=== PATIENT | female | born 1995 | race Caucasian/White ===

== ENCOUNTER 2019-12-29 15:41 | Emergency (ER) | payer OTHER, SELFPAY ==
[2019-12-29 16:00] VITALS: BP 133/61; PULSE 80; RESP 16; TEMP 36.9; O2SAT 100
--- NOTE | 2019-12-29 16:20 | ED.FEMALEGU ---
HPI - Female Genitourinary General Chief complaint: Urogenital-Female Stated complaint: uti/back pain Time Seen by Provider: 12/29/19 16:13 Source: patient and RN notes reviewed Mode of arrival: ambulatory Limitations: no limitations History of Present Illness HPI Narrative: Patient presents today complaining of left low back pain that started 1 week ago. On 12/22/2019, she was placed on a course of Macrobid for UTI by her PCP. She finished this medication 3 days ago and states her urinary symptoms improved, but the low back pain persists. Pain increases when she moves or goes from a sitting to standing position. She currently rates her pain 3/10. Denies radiation of the pain. Denies any loss of bowel or bladder control. Denies any numbness or tingling in the extremities. 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 Denies any known injury. MD elicited complaint: other (Back pain) Related Data Allergies Allergy/AdvReac Type Severity Reaction Status Date / Time No Known Allergies Allergy Verified 12/29/19 15:44 Review of Systems Review of Systems: Narrative: CONSTITUTIONAL: Denies body aches, fever, chills, or sweats. EYES: Denies visual changes, redness, or discharge. ENT: Denies rhinorrhea, congestion, sore throat, or otalgia. CARDIOVASCULAR: Denies chest pain, palpitations, or edema. RESPIRATORY: Denies cough or dyspnea. GASTROINTESTINAL: Denies abdominal pain, nausea, vomiting, or diarrhea. GENITOURINARY: Denies dysuria or hematuria. SKIN: Denies rash, itching, or wounds. MUSCULOSKELETAL: Denies joint pain, or myalgia. + Left low back pain NEUROLOGIC: Denies headache, numbness, tingling, or weakness. PSYCH: Denies depression or anxiety. PMFSH Social History Social History Gender identity (if verbalized by the patient): Female Comments At time of signature, I have reviewed and agree with nursing past medical, surgical, social and family history unless otherwise noted. Please see nursing chart for further information. There is no relevant family history pertinent to the presenting complaint Exam Narrative: Exam Narrative: GENERAL: Well-appearing, well-nourished, and in no acute distress. HEAD: Normocephalic, atraumatic. EYES: EOMI. No redness or drainage. Conjunctivae normal. ENT: Mucous membranes pink and moist. NECK: Normal AROM. CHEST: No respiratory distress. MUSCULOSKELETAL: -CVAT. No bony tenderness of the spine. Left lower lumbar paraspinal muscle tenderness. No tenderness of the SI joint. No right-sided tenderness. Distal sensation intact. Capillary refill normal. Pedal pulses normal. EXTREMITIES: Normal range of motion. No edema. SKIN: Warm, dry, no rash. Capillary refill normal. Normal skin turgor. NEURO: No focal deficits. Alert and oriented x3. Gait steady. PSYCH: Normal affect. No signs of depression or anxiety. Course Vital Signs Vital signs: Vital Signs Temperature 98.4 F 12/29/19 16:00 Pulse Rate 80 12/29/19 16:00 Respiratory Rate 16 12/29/19 16:00 Blood Pressure 133/61 12/29/19 16:00 Pulse Oximetry 100 12/29/19 16:00 Temperature 98.4 F 12/29/19 16:00 Pulse Rate 80 12/29/19 16:00 Respiratory Rate 16 12/29/19 16:00 Blood Pressure 133/61 12/29/19 16:00 Pulse Oximetry 100 12/29/19 16:00 Reviewed. Pt has been instructed to follow up with her PCP regarding her elevated blood pressure today. MDM - Female Genitourinary Differential Diagnosis Differential diagnosis: Likely urinary tract infection and other (Kidney stone, pyelonephritis, muscle strain) Lab Data Labs: Urine Glucose Negative Reference Range: Negative Urine Bilirubin Negative Reference Range: Negative Urine Ketone Negative Reference Range: Negative Urine Specific [place] 1.025 Reference Range:1.001-1.035
== END 2019-12-29 16:30 | disposition home or self-care (01) ==
PROVIDERS: Emergency Provider Nurse Practitioner; PCP Nurse Practitioner Family
DX: S39.012A Strain of muscle, fascia and tendon of lower back, initial encounter (principal); X58.XXXA Exposure to other specified factors, initial encounter
CPT/HCPCS: 81003; 99213; G0463

== ENCOUNTER 2020-04-04 12:09 | Emergency (ER) | payer OTHER, SELFPAY ==
--- NOTE | ~2020-04-04 | XR_ITS ---
EXAMINATION: XR chest 2V DATE: 04/04/2020 13:02 INDICATION: Wheezing. TECHNIQUE: Frontal and lateral views of the chest were obtained. COMPARISON: None. FINDINGS: The chest demonstrates clear lungs without pneumonia, pleural effusion, or pneumothorax. Th e heart size is normal. IMPRESSION: 1. No acute cardiopulmonary disease. Reviewed, dictated and finalized at location A.
[2020-04-04 12:13] VITALS: PULSE 111; RESP 18; TEMP 37; O2SAT 99
--- NOTE | 2020-04-04 12:36 | ED.GENADULT ---
HPI - General Adult General Chief complaint: Upper Respiratory Infection Stated complaint: Wheezing Time Seen by Provider: 04/04/20 12:36 Source: patient Mode of arrival: ambulatory Limitations: no limitations History of Present Illness HPI narrative: 24-year-old female patient presents to the [facility] with complaints of shortness of breath and wheezing that started yesterday. Patient states she is currently 17 weeks . Patient states she has had this before earlier in the year and was diagnosed with bronchitis and was given some steroids. Patient states she was a former smoker but since she has been she has quit smoking. Patient states she has had a productive cough with some green sputum. Denies any fevers, body aches or chills. Denies any ear pain, sore throat or runny nose. Patient states she did have a head cold about 2 weeks ago. 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 Denies getting her flu shot yet this year. Related Data Home Medications Medication Instructions Recorded Confirmed 04/04/20 Allergies Allergy/AdvReac Type Severity Reaction Status Date / Time No Known Allergies Allergy Verified 12/29/19 15:44 Review of Systems Review of Systems: Narrative: CONSTITUTIONAL: Denies fever, chills, or sweats. EYES: Denies visual changes, redness, or discharge. ENT: Denies rhinorrhea, congestion, sore throat, or otalgia. CARDIOVASCULAR: Denies chest pain, palpitations, or edema. RESPIRATORY: Positive productive cough with dyspnea. GASTROINTESTINAL: Denies abdominal pain, nausea, vomiting, or diarrhea. GENITOURINARY: Denies dysuria or hematuria. SKIN: Denies rash or itching. MUSCULOSKELETAL: Denies back pain, joint pain, or myalgia. NEUROLOGIC: Denies headache, numbness, or weakness. PSYCHIATRIC: Denies anxiety or depression. PMFSH Social History Social History Gender identity (if verbalized by the patient): Female Comments At the time of my signature I agree with nursing past medical history, surgical, social, and family history. There is no relevant family history pertinent to the presenting complaint. Exam Narrative: Exam Narrative: GENERAL: Well-appearing, well-nourished, and in no acute distress. HEAD: Normocephalic, atraumatic. EYES: PERRLA and EOMI. ENT: Nares clear, no rhinorrhea or epistaxis. Mucous membranes moist. Posterior pharynx with no erythema, tonsil enlargement, exudates or lesions present. Bilateral TMs are clear with no erythema or foreign bodies to the canal. NECK: Supple. No lymphadenopathy CHEST: Patient has wheezing noted on inspiration and expiration and bilateral upper and lower lobes. Patient is talking in full complete sentences with no tripoding noted. HEART: Regular rate and rhythm. No murmur heard. Normal peripheral pulses. ABDOMEN: Soft, nontender, nondistended, normal active bowel sounds. EXTREMITIES: Normal range of motion. No edema. SKIN: Warm, dry, no rash. NEURO: No focal deficits. Alert and oriented x3. Course Reevaluation(s) Reevaluation #1: Reevaluated patient after her breathing treatment had concluded. Discussed with her that she is feeling a little bit better and feels like she can take a bigger deeper breath. Patient continues to have some wheezing to bilateral upper lobes but does have some improvement to the wheezing since the breathing treatment. Discussed with patient we will discharge her home with an albuterol inhaler along with azithromycin antibiotic. Discussed with her that because she is I am not going to prescribe any steroids at this time. Discussed with her that she can follow-up with her OB. We will go ahead and send patient for Covid test seen and discussed with her that the order will be faxed over to [facility] and they will call her most likely sometime tomorrow to schedule the testing. Discussed with patient that regardless of her test result
[2020-04-04] MEDS: ALBUTEROL SULFATE NEB 2.5 MG/3 ML INH INHALATION (13:18)
[2020-04-04 13:54] VITALS: PULSE 111; RESP 18; O2SAT 100; O2SAT 99
== END 2020-04-04 13:54 | disposition home or self-care (01) ==
PROVIDERS: Emergency Provider Nurse Practitioner Family; PCP Nurse Practitioner Family
DX: O99.512 Diseases of the respiratory system complicating pregnancy, second trimester (principal); Z3A.17 17 weeks gestation of pregnancy; J20.8 Acute bronchitis due to other specified organisms; Z20.828 Contact with and (suspected) exposure to other viral communicable diseases
CPT/HCPCS: 71046; 87081; 87804; 87880; 94640; 99213; G0463

== ENCOUNTER 2020-04-05 11:13 | Outpatient (NON) | payer OTHER, SELFPAY ==
[2020-04-05 22:56] LABS: SARS-CoV-2 RNA PCR Negative
== END 2020-04-05 11:14 ==
PROVIDERS: PCP Nurse Practitioner Family; Visit Provider Nurse Practitioner Family
DX: Z20.828 Contact with and (suspected) exposure to other viral communicable diseases (principal); J20.8 Acute bronchitis due to other specified organisms
CPT/HCPCS: 87635; C9803; U0003

== ENCOUNTER 2020-09-04 05:02 | Inpatient (IN) | payer OTHER, SELFPAY ==
[2020-09-04] VITALS (110 sets, daily range): BP systolic 94–164; BP diastolic 41–142; PULSE 32–150; RESP 18; TEMP 36.3–37; O2SAT 81–100; BMI 24.5
--- NOTE | 2020-09-04 05:02 | LDADM ---
This patient, Ada Marino, was admitted to Labor/Delivery/Recovery 103 on 09/04/20 at 05:02. Plans for labor, pain management and were discussed with patient. Patient/family oriented to hospital policies and general routines including ID bracelet, bed and alarms, visiting hours, pain management, procedures, bathroom and other care routines, personal items, smoking policy, room service/diet and guest tray routines, infant security routines, and visiting hours. Patient/Family are encouraged to report perceived risks to care and to ask questions if they do not understand what they are told or what they should do. See OBIX for further documentation.
[2020-09-04 05:30] LABS: Basophils Absolute Auto 0.1 K/mm3 (0.0-0.1); Basophils Percent Auto 0.3 % (0.2-1.2); Eosinophils Absolute Auto 0.3 K/mm3 (0-0.3); Eosinophils Percent Auto 2.2 % (0-4.4); Hematocrit 34.5 % (37.0-47.0); Hemoglobin 11.7 g/dL (12.0-15.0); Immature Granulocyte Percent A 1.3 % (0-0.5); Lymphocytes Absolute Auto 3.28 K/mm3 (0.9-3.2); Lymphocytes Percent Auto 21.9 % (18.3-44.2); Mean Corpuscular HGB Conc 33.9 g/dl (32-36); Mean Corpuscular Hemoglobin 27.3 pg (26-34); Mean Corpuscular Volume 80.6 fl (80-100); Mean Platelet Volume 12.2 fl (7.4-10.4); Monocytes Absolute Auto 1.6 K/mm3 (0.1-0.6); Monocytes Percent Auto 10.7 % (2.6-8.5); Neutrophils Absolute Auto 9.5 K/mm3 (1.3-6.7); Neutrophils Percent Auto 63.6 % (45.5-73.1); Platelet Count Result 254 k/mm3 (150-375); Red Blood Count 4.28 M/mm3 (4.2-5.4); Red Cell Distribution Width 14.6 % (11.5-14.5)
[2020-09-04] MEDS: LACTATED RINGERS 1,000 ML 125 ML IV CONT ×3 (05:42→12:34)
[2020-09-04] MEDS: OXYTOCIN 30 UNITS/NS 500 ML 30 UNITS/500 ML BAG 6 UNITS IV CONT ×2 (05:42→13:51)
--- NOTE | 2020-09-04 08:08 | WPDANESEPP ---
Anes - Eval Pre Procedure Procedure: labor epidural Date/Time: 09/04/20 08:08 Preop Diagnosis: pain during labor Pre Op Diagnosis: Induction of Labor Patient Data Age: 24 Gender: F Height: 5 ft 8 in Weight: 73 kg Last Vital Signs Temp 36.7 C 09/04/20 05:40 Pulse 93 09/04/20 08:00 BP 129/74 09/04/20 08:00 Allergies Allergy/AdvReac Type Severity Reaction Status Date / Time No Known Allergies Allergy Verified 08/17/20 12:15 Home Medications Medication Instructions Recorded Confirmed Type albuterol sulfate [Ventolin HFA] 2 puff INHALATION .Q4 hours PRN 04/04/20 09/04/20 Rx #18 gm prenat.vits,moises,[id number] 1 tablet PO DAILY 08/13/20 08/13/20 History [ #2] Laboratory Tests 09/04/20 09/04/20 09/04/20 05:20 05:20 05:20 WBC 15.0 K/mm3 H K/mm3 (4.5-10.0) RBC 4.28 M/mm3 M/mm3 (4.2-5.4) Hgb 11.7 g/dL L g/dL (12.0-15.0) Hct 34.5 % L % (37.0-47.0) MCV 80.6 fl fl (80-100) MCH 27.3 pg pg (26-34) MCHC 33.9 g/dl g/dl (32-36) RDW 14.6 % H % (11.5-14.5) Plt Count 254 k/mm3 k/mm3 (150-375) MPV 12.2 fl H fl (7.4-10.4) Immature Gran % (Auto) 1.3 % H % (0-0.5) Neut % (Auto) 63.6 % % (45.5-73.1) Lymph % (Auto) 21.9 % % (18.3-44.2) [place] % (Auto) 10.7 % H % (2.6-8.5) Eos % (Auto) 2.2 % % (0-4.4) Baso % (Auto) 0.3 % % (0.2-1.2) Lymph # (Auto) 3.28 K/mm3 H K/mm3 (0.9-3.2) [place] # (Auto) 1.6 K/mm3 H K/mm3 (0.1-0.6) Eos # (Auto) 0.3 K/mm3 K/mm3 (0-0.3) Baso # (Auto) 0.1 K/mm3 K/mm3 (0.0-0.1) Abs Immat Gran (auto) 0.20 K/mm3 H K/mm3 (0.00-0.031) Absolute Neuts (auto) 9.5 K/mm3 H K/mm3 (1.3-6.7) Absolute Nucleated RBC 0.0 K/mm3 K/mm3 (0.0-0.012) Nucleated RBC % 0.0 % % (0.0-0.2) RPR Pending Blood Type B Positive Antibody Screen Negative Patient hx anesthesia problems: none Family hx anesthesia problems: none PMFSH Family History Family History Grandparent Diabetes mellitus Sibling Kidney failure Asthma Borderline diabetes Mother Asthma Social History Social History Smoking status: Never smoker Gender identity (if verbalized by the patient): Female Exam Day of Procedure 09/04/20 08:08 Patient weight: normal Heart: regular rate and rhythm Neurological: alert and oriented
--- NOTE | 2020-09-04 09:02 | WPDOBADMIT ---
Obstetrics - Admit Note Admission Note: record reviewed. No pertinent additions to the history and/or any subsequent changes in the physical findings that are not consistent with the expected course of the were found.EIL, SVE 3-4/-1, Arom moderate amount of clear odorless fluid Additions to the history and/or subsequent changes in the physical findings follow. None.
--- NOTE | 2020-09-04 13:29 | PM.OBPRVD ---
OB - Delivery Note Procedure Delivery date: 09/04/20 Procedure: vaginal delivery Intrapartal events: None Induction method: AROM and per pitocin protocol Delivery monitor: external FHT and external uterine Route of delivery: Episiotomy description: None Laceration Description: None Specimen: No Quantitative Blood Loss (ml): 52 Anesthesia type: Epidural Disposition: other () [place] Baby Date of : 09/04/20 Time of : 13:18 Weeks of gestation at delivery: 39 Infant gender: Male Weight (pounds): 8 Weight (ounces): 7 presentation: vertex position: Right Occiput Anterior Placenta delivery description: Spontaneous cord vessel description: 3 Vessels, Clamped/Cut and Delayed Cord Clamping score one minute: 9 score five minutes: 9 Narrative: Mom and baby skin to skin and in stable condition.
--- NOTE | 2020-09-04 16:18 | OBPPTRN ---
Patient transferred to post room #288 via wheelchair. Support person present. Oriented to unit, room, information board, rooming in, admission packet and security measures. Patient verbalizes understanding.
[2020-09-04] MEDS: IBUPROFEN 600 MG TABLET PO (22:44)
[2020-09-05 03:00] VITALS: BP 111/67; PULSE 89; RESP 16; TEMP 36.1
[2020-09-05 05:33] LABS: Hematocrit 32.9 % (37.0-47.0); Hemoglobin 10.7 g/dL (12.0-15.0)
[2020-09-05 08:00] VITALS: BP 134/60; PULSE 95; RESP 18; TEMP 36.8
--- NOTE | 2020-09-05 09:52 | WPDANLDPN2 ---
Anes-Prog Note L&D Date/Time: 09/05/20 09:52 Comfortable throughout: labor and delivery Neuraxial method: epidural Epidural/Spinal procedure site: clean & non-tender Neuro status: Neuro function grossly intact. Cardiovascular status: normal Respiratory status: normal Airway patency: baseline Mental status: baseline Post-Op hydration status: normal Vital Signs: Last Vital Signs Temp 36.1 C L 09/05/20 03:00 Pulse 89 09/05/20 03:00 Resp 16 09/05/20 03:00 BP 111/67 09/05/20 03:00 Pulse Ox 99 09/04/20 13:02 Pain score (VAS): 0 Post-procedural complaints: none Patient feedback: Patient satisfied with anesthetic care.
[2020-09-05] MEDS: IBUPROFEN 600 MG TABLET PO (10:00)
[2020-09-05] MEDS: DOCUSATE SODIUM 100 MG CAPSULE PO (10:00)
[2020-09-05] MEDS: MULTIVIT/MIN/PREN/FOL AC/IRON TABLET 1 TAB PO (10:00)
--- NOTE | 2020-09-05 12:12 | PM.OBPNVD ---
OB - PN: Subj Subjective Date/time seen: 09/05/20 12:12 Patient comments: no complaints baby status: doing well [place] feeding status: breast and bottle feeding OB - PN: Obj Data Labs CBC & Chem 7: 09/05/20 05:25 Labs: Laboratory Results - last 24 hr 09/05/20 05:25 Hgb 10.7 L Hct 32.9 L OB - PN A/P Plan day: 1 Plan: routine care and discharge home Time Spent With Patient Time: Total time spent is greater than 50% in coordination of care (as documented) at patient's floor/unit and/or counseling patient: Review of Systems Review of Systems: All systems reviewed & are unremarkable except as noted in HPI and below Exam Const: General: cooperative and healthy appearing Psych: Affect: normal affect Attitude: cooperative Thought process: Normal thought process present Thought content: Yes Normal thought content present Insight: Good insight present (Psych) Judgement: Good judgement present (Psych)
--- NOTE | 2020-09-05 12:13 | P.DS_ITS ---
DS: Admitting Diagnosis Admitting Diagnosis Admitting Diagnosis: EIL OB - DS: Summary OB Procedures : None OB Procedures Intrapartum: Spontaneous Vag Delivery OB Procedures: : None Time Spent with Patient Time attestation: Total time spent providing and/or coordinating discharge services: DS: Data Data Completed and Pending Labs on day of discharge: Labs from last 24 hours 09/05/20 05:25 Hgb 10.7 L Hct 32.9 L Discharge Plan Discharge Attending physician on discharge: Chris White Discharging Clinician: Becki Sahu Patient Disposition: Home, Self-Care Activity: pelvic rest Diet: regular Patient Instructions: Antibiotic Form Stand Alone Forms: General Discharge Information Follow-up/Referrals: Becki Sahu, CNM [Certified Nurse [employer] Social Worker] - 4 Weeks Discharge Medications: Continued albuterol sulfate [Ventolin HFA] 90 mcg/actuation HFA aerosol inhaler 2 puff INHALATION .Q4 hours PRN (Reason: cough) Qty: 18 RF: 0 #2 Tablet 1 tablet PO DAILY RF: 0 Date of admission: 09/04/20 05:02 Primary Care Provider: Dante,Char Admitting Provider: Chris White Attending physician on admission: Chris White Condition: Stable
[2020-09-05 12:17] VITALS: BP 121/80; PULSE 92; RESP 18; TEMP 36.7
--- NOTE | 2020-09-05 14:25 | PC.NURSE ---
Mother states she would like to go home today. She has lots of help at home and feel comfortable with the feeding plan of , pumping and supplementing with formula every three hours.
--- NOTE | 2020-09-05 14:51 | PC.NURSE ---
Patient viewed the discharge video Mother & Baby Care, The First Two Weeks . Patient was given the opportunity and encouraged to ask questions. Patient verbalized understanding of information shared and has been given the mother/baby guide for home reference.
[2020-09-06 07:02] LABS: Rapid Plasma Reagin Non-Reactive (NonReactive)
[2020-09-07 11:06] VITALS: BP 104/72; PULSE 81; RESP 20; TEMP 36.9; O2SAT 98
== END 2020-09-05 15:50 | disposition home or self-care (01) | DRG 807 ==
LOC: ANHLDR 05:09 → ANHOB2 16:22
PROVIDERS: Advanced Practice Midwife; Admitting Provider Obstetrics & Gynecology; PCP Nurse Practitioner Family; Visit Provider Obstetrics & Gynecology
DX: O76 Abnormality in fetal heart rate and rhythm complicating labor and delivery (principal); Z37.0 Single live birth; Z3A.39 39 weeks gestation of pregnancy
CPT/HCPCS: 36415; 85014; 85018; 85025; 86592; 86850; 86900; 86901; A9270; J2590; J2795; J7120

== ENCOUNTER 2022-11-20 05:06 | Inpatient (IN) | payer OTHER, SELFPAY ==
[2022-11-20] VITALS (25 sets, daily range): BP systolic 71–145; BP diastolic 36–129; PULSE 66–131; RESP 16; TEMP 36.5–36.9; O2SAT 99–100; BMI 32.8
--- NOTE | 2022-11-20 05:29 | LDADM ---
This patient, Ada Marino, was admitted to Labor/Delivery/Recovery 108 on 11/20/22 at 05:06. Plans for labor, pain management and were discussed with patient. Patient/family oriented to hospital policies and general routines including ID bracelet, bed and alarms, visiting hours, pain management, procedures, bathroom and other care routines, personal items, smoking policy, room service/diet and guest tray routines, infant security routines, and visiting hours. Patient/Family are encouraged to report perceived risks to care and to ask questions if they do not understand what they are told or what they should do. See OBIX for further documentation.
[2022-11-20 05:39] LABS: Basophils Absolute Auto 0.1 K/mm3 (0.0-0.1); Basophils Percent Auto 0.4 % (0.2-1.2); Eosinophils Absolute Auto 0.2 K/mm3 (0-0.3); Eosinophils Percent Auto 1.9 % (0-4.4); Hematocrit 35.4 % (37.0-47.0); Hemoglobin 11.6 g/dL (12.0-15.0); Immature Granulocyte Absolute 0.13 K/mm3 (0.00-0.031); Immature Granulocyte Percent A 1.1 % (0-0.5); Lymphocytes Absolute Auto 2.62 K/mm3 (0.9-3.2); Lymphocytes Percent Auto 22.5 % (18.3-44.2); Mean Corpuscular HGB Conc 32.8 g/dl (32-36); Mean Corpuscular Hemoglobin 27.8 pg (26-34); Mean Corpuscular Volume 84.7 fl (80-100); Mean Platelet Volume 12.1 fl (7.4-10.4); Monocytes Absolute Auto 1.1 K/mm3 (0.1-0.6); Monocytes Percent Auto 9.7 % (2.6-8.5); Neutrophils Absolute Auto 7.5 K/mm3 (1.3-6.7); Neutrophils Percent Auto 64.4 % (45.5-73.1); Platelet Count Result 210 k/mm3 (150-375); Red Blood Count 4.18 M/mm3 (4.2-5.4); Red Cell Distribution Width 13.7 % (11.5-14.5); White Blood Count 11.6 K/mm3 (4.5-10.0)
[2022-11-20] MEDS: OXYTOCIN 30 UNITS/NS 500 ML 30 UNITS/500 ML BAG IV CONT (05:57)
[2022-11-20] MEDS: LACTATED RINGERS 1,000 ML 125 ML IV CONT (05:58)
--- NOTE | 2022-11-20 07:27 | WPDANESEPP ---
Anes - Eval Pre Procedure Procedure: labor epidural Date/Time: 11/20/22 07:27 Surgeon: em Preop Diagnosis: pain during labor Pre Op Diagnosis: Induction of Labor Patient Data Age: 27 Gender: F Height: 1.73 m Weight: 98 kg Last Vital Signs Temp 36.9 C 11/20/22 06:00 Pulse 105 H 11/20/22 07:00 Resp 16 11/20/22 06:00 BP 96/59 L 11/20/22 07:00 O2 Del Method Room Air 11/20/22 05:27 Allergies Allergy/AdvReac Type Severity Reaction Status Date / Time No Known Allergies Allergy Verified 10/31/22 14:21 Home Medications Medication Instructions Recorded Confirmed Type albuterol sulfate 90 mcg/actuation 2 puff inhalation .Q4 hours PRN 04/04/20 11/20/22 Rx aerosol inhaler (Ventolin HFA) cough #18 grams prenat.vits,moises,pkf-czex-dycjj 1 tablet PO DAILY 08/13/20 11/20/22 History Laboratory Tests 11/20/22 05:28 WBC 11.6 H K/mm3 (4.5-10.0) RBC 4.18 L M/mm3 (4.2-5.4) Hgb 11.6 L g/dL (12.0-15.0) Hct 35.4 L % (37.0-47.0) MCV 84.7 fl (80-100) MCH 27.8 pg (26-34) MCHC 32.8 g/dl (32-36) RDW 13.7 % (11.5-14.5) Plt Count 210 k/mm3 (150-375) MPV 12.1 H fl (7.4-10.4) Immature Gran % (Auto) 1.1 H % (0-0.5) Neut % (Auto) 64.4 % (45.5-73.1) Lymph % (Auto) 22.5 % (18.3-44.2) [place] % (Auto) 9.7 H % (2.6-8.5) Eos % (Auto) 1.9 % (0-4.4) Baso % (Auto) 0.4 % (0.2-1.2) Lymph # (Auto) 2.62 K/mm3 (0.9-3.2) [place] # (Auto) 1.1 H K/mm3 (0.1-0.6) Eos # (Auto) 0.2 K/mm3 (0-0.3) Baso # (Auto) 0.1 K/mm3 (0.0-0.1) Abs Immat Gran (auto) 0.13 H K/mm3 (0.00-0.031) Absolute Neuts (auto) 7.5 H K/mm3 (1.3-6.7) Absolute Nucleated RBC 0.0 K/mm3 (0.0-0.012) Nucleated RBC % 0.0 % (0.0-0.2) RPR Pending Blood Type B Positive Antibody Screen Negative Patient hx anesthesia problems: none Family hx anesthesia problems: none Results Review: All pre-operative results and documents have been reviewed as part of the pre-operative evaluation. [facility] Family History Family History Grandparent Diabetes mellitus Sibling Kidney failure Asthma Borderline diabetes Mother Asthma Social History Social History Smoking status: Former smoker Tobacco type: e-cigarettes/vaping Substance use: never Lack of Transportation: No Lack of Food: Never True Current Housing: I Have Housing Concerned About Future Housing: No Difficulty Paying Gas/Electric Bills: No Difficulty Paying for Meds: No Currently Unemployed: No Education: High School Diploma/GED Difficulty w/ Childcare or Family Care: No Gender identity (if verbalized by the patient): Female Spiritual care concerns: No Exam Day of Procedure 11/20/22 07:27
--- NOTE | 2022-11-20 07:35 | WPDOBADMIT ---
Obstetrics - Admit Note Admission Note: record reviewed. No pertinent additions to the history and/or any subsequent changes in the physical findings that are not consistent with the expected course of the were found. IOL SVE /-2 AROM large amount of clear, odorless fluid, anticipate vaginal delivery. Additions to the history and/or subsequent changes in the physical findings follow. None.
--- NOTE | 2022-11-20 12:11 | PM.OBPRVD ---
OB - Delivery Note Procedure Delivery date: 11/20/22 Procedure: vaginal delivery Induction method: AROM and Per Pitocin Protocol Delivery monitor: External FHT and External Uterine Laceration Description: None Specimen: No Quantitative Blood Loss (ml): 95 Anesthesia type: None Disposition: Floor Baby Date of : 11/20/22 Time of : 11:58 Weeks of gestation at delivery: 39 Infant gender: Female Weight (pounds): 6 Weight (ounces): 12 presentation: vertex position: Left Occiput Anterior Placenta delivery description: Spontaneous Cord Vessel Description: 3 Vessels, Clamped/Cut and Delayed Cord Clamping score one minute: 8 score five minutes: 9 Narrative: mother and baby skin to skin in stable condition
[2022-11-20] MEDS: OXYTOCIN 30 UNITS/NS 500 ML 30 UNITS/500 ML BAG 125 UNITS IV CONT (12:40)
[2022-11-20 13:16] LABS: Rapid Plasma Reagin Non-Reactive (NonReactive)
--- NOTE | 2022-11-20 14:50 | OBPPTRN ---
Patient ambulatory to post room #281. Support person present. Oriented to unit, room, information board, rooming in, admission packet and security measures. Patient verbalizes understanding.
[2022-11-21 05:25] VITALS: BP 109/60; PULSE 63; RESP 16; TEMP 36.7; O2SAT 98
[2022-11-21 06:15] LABS: Hematocrit 32.9 % (37.0-47.0); Hemoglobin 10.7 g/dL (12.0-15.0)
[2022-11-21 07:45] VITALS: BP 104/53; PULSE 65; RESP 16; TEMP 36.6; O2SAT 100
--- NOTE | 2022-11-21 08:34 | PM.OBPNVD ---
OB - PN: Subj Subjective Date/time seen: 11/21/22 08:34 Patient comments: no complaints, pain well controlled, incisional pain, tolerating diet and flatus present OB - PN: Obj Data Labs 11/21/22 05:41 Labs: Laboratory Results - last 24 hr 11/20/22 11/21/22 05:28 05:41 Hgb 10.7 L Hct 32.9 L RPR Non-reactive OB - PN A/P Plan day: 1 Plan: routine care Comments: No problems, routine care Time Spent With Patient Time: Total time spent is greater than 50% in coordination of care (as documented) at patient's floor/unit and/or counseling patient: Exam Const: General: comfortable, no acute distress and alert Resp: Effort & Inspection: normal respiratory effort Auscultation: no crackles, no rales and no rhonchi Cardio: Rate: regular rate Heart sounds: no click, no murmurs and no rubs GI: Inspection: non-distended GI Palp: No Tenderness to palpation present (GI) Auscultation: normal bowel sounds Other: Incision - CDI Extrem: General: normal to inspection, no pedal edema and no calf tenderness
--- NOTE | 2022-11-21 08:34 | PM.OBDSVD ---
DS: Admitting Diagnosis Discharge Date 10/21/22 Admitting Diagnosis term DS: Discharge Diagnosis Discharge Diagnosis (1) : Code(s): Z34.90 - Encounter for supervision of normal , unspecified, unspecified trimester Status: Acute OB - DS: Summary OB Procedures : None OB Procedures Intrapartum: Spontaneous Vag Delivery OB Procedures: : None Time Spent with Patient Time attestation: Total time spent providing and/or coordinating discharge services: DS: Data Data Completed and Pending Labs on day of discharge: Labs from last 24 hours 11/21/22 11/20/22 05:41 05:28 Hgb 10.7 L Hct 32.9 L RPR Non-reactive Discharge Plan Discharge Patient Disposition: Home Health Service Activity: pelvic rest Diet: regular Patient Instructions: Antibiotic Form Stand Alone Forms: General Discharge Information Follow-up/Referrals: Chris White MD [Physician] - Discharge Medications: Continued albuterol sulfate [Ventolin HFA] 90 mcg/actuation HFA aerosol inhaler 2 puff INHALATION .Q4 hours PRN (Reason: cough) Qty: 18 0RF prenat.vits,moises,wjj-qpds-rlnty Tablet 1 tablet PO DAILY Date of admission: 11/20/22 05:06 Primary Care Provider: DanteChar Admitting Provider: Chris White Attending physician on admission: Chris White Condition: Stable
[2022-11-21 09:00] VITALS: PULSE 65; RESP 16; O2SAT 100
[2022-11-21] MEDS: IBUPROFEN 600 MG TABLET PO (09:00)
[2022-11-21] MEDS: DOCUSATE SODIUM 100 MG CAPSULE PO (09:00)
[2022-11-21] MEDS: MULTIVIT/MIN/PREN/FOL AC/IRON TABLET 1 TAB PO (09:00)
--- NOTE | 2022-11-21 16:04 | PC.NURSE ---
[phone] Mother verbalizes she is able to independently latch with appropriate positioning/alignment. She denies any nipple discomfort and is responsively . is currently meeting outcomes for weight, output, jaundice and feeding frequencies of 8-12 times in 24 hours. Mother declines any additional assistance/education at this time. Mother is encouraged to call for assistance if her doesn?t latch or there is discomfort with latching. Mother voiced understanding of information shared and the mom reminded of the mom/baby guide for an additional resource. Reported to the primary RN.
[2022-11-22 11:14] VITALS: BP 113/58; PULSE 76; RESP 18; TEMP 36.3; O2SAT 100
== END 2022-11-21 13:40 | disposition home or self-care (01) | DRG 807 ==
LOC: ANHLDR 05:08 → ANHOB2 14:53
PROVIDERS: Admitting Provider Obstetrics & Gynecology; PCP Nurse Practitioner Family; Referring Provider Advanced Practice Midwife; Visit Provider Obstetrics & Gynecology
DX: O80 Encounter for full-term uncomplicated delivery (principal); Z37.0 Single live birth; Z3A.39 39 weeks gestation of pregnancy
CPT/HCPCS: 36415; 85014; 85018; 85025; 86592; 86850; 86900; 86901; A9270; J2590; J2795; J7120

== ENCOUNTER 2024-05-18 13:54 | Observation (INO) | payer OTHER, SELFPAY ==
[2024-05-18 13:16] VITALS: BP 116/71; PULSE 84
[2024-05-18 13:31] VITALS: BP 113/73; PULSE 88
[2024-05-18 13:46] VITALS: BP 101/58; PULSE 79
--- NOTE | 2024-05-18 17:18 | PM.OBTRLD ---
OB - Triage/Final Diagnosis Visit Information Date of evaluation: 05/18/24 Reason for evaluation: other (fall) Comments/Additional reasons for admission: I have assessed the risk for this patient, Ada Espitia Alejandrorosalba, and determined that she would benefit from observation care. Evaluation Vital signs: Vital Signs - 24 hr 05/18/24 13:16 05/18/24 13:31 05/18/24 13:46 Pulse Rate 84 88 79 Blood Pressure 116/71 113/73 101/58 L
== END 2024-05-18 18:05 | disposition home or self-care (01) ==
PROVIDERS: Admitting Provider Obstetrics & Gynecology; Visit Provider Obstetrics & Gynecology
DX: Z04.3 Encounter for examination and observation following other accident (principal); O99.891 Other specified diseases and conditions complicating pregnancy; W19.XXXA Unspecified fall, initial encounter; Z3A.00 Weeks of gestation of pregnancy not specified
CPT/HCPCS: G0378; G0379

== ENCOUNTER 2024-07-14 00:52 | Inpatient (IN) | payer OTHER, SELFPAY ==
[2024-07-14] VITALS (21 sets, daily range): BP systolic 114–161; BP diastolic 59–93; PULSE 65–106; RESP 16; TEMP 36.2–36.7; O2SAT 99–100; BMI 37.6
--- NOTE | 2024-07-14 01:30 | LDADM ---
This patient, Ada Marino, was admitted to Labor/Delivery/Recovery 104 on 07/14/24 at 00:52. Plans for labor, pain management and were discussed with patient. Patient/family oriented to hospital policies and general routines including ID bracelet, bed and alarms, visiting hours, pain management, procedures, bathroom and other care routines, personal items, smoking policy, room service/diet and guest tray routines, infant security routines, and visiting hours. Patient/Family are encouraged to report perceived risks to care and to ask questions if they do not understand what they are told or what they should do. See OBIX for further documentation.
[2024-07-14 01:31] LABS: Basophils Percent Auto 0.3 % (0.2-1.2); Eosinophils Absolute Auto 0.2 K/mm3 (0-0.3); Eosinophils Percent Auto 1.2 % (0-4.4); Hematocrit 36.3 % (37.0-47.0); Immature Granulocyte Absolute 0.07 K/mm3 (0.00-0.031); Immature Granulocyte Percent A 0.5 % (0-0.5); Lymphocytes Absolute Auto 2.72 K/mm3 (0.9-3.2); Lymphocytes Percent Auto 21.3 % (18.3-44.2); Mean Corpuscular HGB Conc 33.1 g/dl (32-36); Mean Corpuscular Hemoglobin 27.3 pg (26-34); Mean Corpuscular Volume 82.5 fl (80-100); Mean Platelet Volume 12.5 fl (7.4-10.4); Monocytes Absolute Auto 1.1 K/mm3 (0.1-0.6); Monocytes Percent Auto 8.5 % (2.6-8.5); Neutrophils Absolute Auto 8.7 K/mm3 (1.3-6.7); Neutrophils Percent Auto 68.2 % (45.5-73.1); Platelet Count Result 222 k/mm3 (150-375); Red Cell Distribution Width 13.3 % (11.5-14.5); White Blood Count 12.8 K/mm3 (4.5-10.0)
[2024-07-14 02:17] LABS: HIV 1/2 Ab P24 Ag Result Negative (Negative)
--- NOTE | 2024-07-14 03:19 | WPDOBADMIT ---
Obstetrics - Admit Note Admission Note: record reviewed. No pertinent additions to the history and/or any subsequent changes in the physical findings that are not consistent with the expected course of the were found. Additions to the history and/or subsequent changes in the physical findings follow. ADMIT in labor, SVE 7-8/80/-1 AROM large amount of clear, odorless fluid, anticipate vaginal delivery
[2024-07-14 05:03] LABS: Rapid Plasma Reagin Non-Reactive (NonReactive)
[2024-07-14] MEDS: OXYTOCIN 30 UNITS/NS 500 ML 30 UNITS/500 ML BAG IV CONT (05:20)
[2024-07-14] MEDS: LACTATED RINGERS 1,000 ML 125 ML IV CONT (05:20)
--- NOTE | 2024-07-14 06:42 | P.PCNOB_ITS ---
OB - Vaginal Delivery Note Procedure Delivery date: 07/14/24 Delivery augmentation: Rupture of Membranes and Pitocin Delivery monitor: External FHT and External Uterine Route of delivery: Episiotomy description: None Laceration Description: Superficial Specimen: No Quantitative Blood Loss (ml): 50 Anesthesia type: None Disposition: Floor Complications: No immediate complications [place] Baby Date of : 07/14/24 Time of : 06:30 Gestational Age by Date: 37 gender: Male presentation: vertex position: Right Occiput Anterior Placenta delivery description: Spontaneous Cord Vessel Description: 3 Vessels score one minute: 8 score five minutes: 9
[2024-07-14] MEDS: OXYTOCIN 30 UNITS/NS 500 ML 30 UNITS/500 ML BAG 125 UNITS IV CONT (07:15)
[2024-07-14] MEDS: ACETAMINOPHEN 325 MG TABLET 650 MG PO (07:55)
--- NOTE | 2024-07-14 08:52 | PC.NURSE ---
Patient transferred to post room #292 via wheel chair. Support person present. Oriented to unit, room, information board, rooming in, admission packet and security measures. Patient verbalizes understanding.
[2024-07-14] MEDS: LANOLIN (LANSINOH) 7.5 GM CREAM 1 APPLIC TOPICAL (09:03)
[2024-07-14] MEDS: DOCUSATE SODIUM 100 MG CAPSULE PO (09:03)
[2024-07-14] MEDS: MULTIVIT/MIN/PREN/FOL AC/IRON TABLET 1 TAB PO (09:03)
--- NOTE | 2024-07-14 10:40 | PC.NURSE ---
Introductions were made, then consulted with patient to assess needs related to . Discussed with mother her?plans to feed?her and the?experience so far. Baby has latched well per mom. Resources provided for inpatient and outpatient services with the feeding sheet, mom/baby guide and name written on the communication board. Mother voiced understanding of information and will call if there is a request for assistance. Reported to the Primary RN.
--- NOTE | 2024-07-14 13:00 | PC.NURSE ---
Infant was sleepy and not waking to feed. Mom worked with him and was able to get him awake and rooting. His face is very bruised. Observed mother latching infant to the [right] breast in [cross cradle] position. Infant [was] able to maintain an appropriate latch. Mother [declines] nipple pain/discomfort [throughout feeding]. suckled eagerly and appeared to have an optimal latch. Mom handles him very well and is comfortable holding her breast. Mother voiced understanding of the education shared, to call for assistance if the does not latch or if there is discomfort with . name/number on communication board. Reported to the Primary RN.?
--- NOTE | 2024-07-14 16:56 | PC.NURSE ---
Yaron Gutierrez, RN license pending, is on orientation and this RN has checked her charting and assessments.
[2024-07-14] MEDS: IBUPROFEN 600 MG TABLET PO (19:17)
[2024-07-15 01:33] VITALS: BP 112/75; PULSE 68; RESP 16; TEMP 36.9; O2SAT 100
[2024-07-15 05:48] LABS: Hematocrit 32.2 % (37.0-47.0); Hemoglobin 10.6 g/dL (12.0-15.0)
--- NOTE | 2024-07-15 07:32 | PC.NURSE ---
07/14/24 Deny Gutierrez RN license pending, is on orientation. Charting has been checked.
[2024-07-15] MEDS: IBUPROFEN 600 MG TABLET PO (07:33)
[2024-07-15] MEDS: MULTIVIT/MIN/PREN/FOL AC/IRON TABLET 1 TAB PO (07:33)
[2024-07-15] MEDS: DOCUSATE SODIUM 100 MG CAPSULE PO (07:34)
[2024-07-15 09:00] VITALS: BP 128/68; PULSE 106; RESP 16; TEMP 36.6; O2SAT 97
--- NOTE | 2024-07-15 10:45 | PC.NURSE ---
Consulted with mother concerning needs and she shared her ability to independently latch infant optimally without pain. Mother is feeding appropriately for growth of infant and understands stimulating to eat if needed. Infant has had appropriate feedings in the last 24 hours meets the outcomes for weight, output, blood sugar and jaundice at this time. Reviewed expectations with near term infants and reasons to begin pumping and/or supplementing with pumped milk. circumcised today and we discussed recovery and sleepiness as well as catching up during night time feeds and waking infant/keeping awake to feed. Reinforced understanding of milk production, transition of milk, signs of adequate intake, transition of stool, responsive watching for feeding cues, the different methods of stimulating infant to breastfeed 1-3 hours after the start of the last feeding, community resources, and when to call a provider using the resource of the feeding sheet along with the mom and baby guide. Mother voiced understanding of the information shared, is confident to continue effectively her at home, when to call for assistance, denies any additional assistance or education at this time. Reported to the Primary RN.
[2024-07-16 11:17] VITALS: BP 124/70; PULSE 84; RESP 18; TEMP 36.7; O2SAT 100
--- NOTE | 2024-07-17 16:32 | PM.OBDSVD ---
DS: Admitting Diagnosis Discharge Date 07/15/24 Admitting Diagnosis labor DS: Discharge Diagnosis Discharge Diagnosis (1) Vaginal delivery: Code(s): O80 - Encounter for full-term uncomplicated delivery Status: Acute OB - DS: Summary OB Procedures : None OB Procedures Intrapartum: Spontaneous Vag Delivery OB Procedures: : None Peripartum Data Laceration Description: Superficial Episiotomy description: None Time Spent with Patient Time attestation: Total time spent providing and/or coordinating discharge services: Discharge Plan Discharge Attending physician on discharge: Jose Steel Consulting providers: Becki Sahu Discharging Clinician: Jose Steel Patient Disposition: Home, Self-Care Activity: may shower, as tolerated and pelvic rest Diet: as tolerated Discharge Instructions: Education: Mom and Baby Guide Given to: Mother Follow-Up: Call your delivering provider's office for an appointment to be seen in: 4 Weeks Mom and baby should come to the [facility] for the follow-up appointment. Appointment Date/Time: July 16, 2024 at 11:00 am What to expect at your follow-up visit: Blood Pressure Check Physical Assessment Call [phone] if you are unable to keep your appointment time. BREAST CARE: * Wear a snug supportive bra. * For engorgement discomfort: Breast Feeding: * Apply warm moist washcloths * Express milk as needed to relieve engorgement * Wear loose clothing * For sore nipples: * Identify correct latch-on * Apply warm moist washcloths before and after nursing * Air dry nipples after nursing * May apply Lansinoh cream to nipples EPISIOTOMY/PERINEAL CARE: * Until bleeding stops, use your gemma bottle after urinating * Change your pad frequently throughout the day * You may take sitz baths several times a day (fill your bathtub with warm water and soak for 20 minutes.) Do NOT bathe in the water * No tub baths until seen by your physician - You may shower ACTIVITY: * Rest as much as possible. * Do not exercise or lift anything heavier than your baby (such as laundry or other children. * Do not put anything into the vagina. No douching, tampons, or sexual activity until seen by physician. NOTIFY PHYSICIAN IF YOU HAVE ANY QUESTIONS OR IF ANY OF THE FOLLOWING SYMPTOMS OCCUR: * If your episiotomy or incision becomes red, swollen, or more painful than what you have experienced in the hospital. * If your vaginal bleeding becomes foul smelling. * If your vaginal bleeding becomes more heavy than a period or if your bleeding changes from pink to bright red. However, you may pass an occasional walnut-sized clot once or twice for the first week . * If you experience a sharp, shooting pain in you calves. * If you discover a hard, reddened area on your breast or if you experience flu-like symptoms. DIET: * Eat regular, well-balanced meals. * Drink plenty of fluids daily. If , drink to thirst. Patient Instructions: Antibiotic Form Patient Language: Israeli Stand Alone Forms: General Discharge Information Follow-up/Referrals: Becki Sahu CNM [Certified Nurse [employer] Line Installer Supervisor] - 5 Weeks Discharge Medications: New docusate sodium 100 mg Capsule 100 mg PO BID PRN (Reason: Constipation) Qty: 60 0RF ibuprofen 600 mg Tablet 600 mg PO Q6H PRN (Reason: Cramping) Qty: 30 0RF Continued albuterol sulfate [Ventolin HFA] 90 mcg/actuation HFA aerosol inhaler 2 puff INHALATION .Q4 hours PRN (Reason: cough) Qty: 18 0RF prenat.vits,moises,[id number] Tablet 1 tablet PO DAILY Date of admission: 07/14/24 00:52 Primary Care Provider: UNKNOWN,DOCTOR Admitting Provider: Jose Steel Attending physician on admission: Jose Steel Condition: Stable
== END 2024-07-15 11:55 | disposition home or self-care (01) | DRG 807 ==
LOC: ANHOB2 07-15 10:39 → ANHLDR 07-16 09:00
PROVIDERS: Advanced Practice Midwife; Admitting Provider Obstetrics & Gynecology; Visit Provider Obstetrics & Gynecology
DX: O80 Encounter for full-term uncomplicated delivery (principal); Z37.0 Single live birth; Z3A.37 37 weeks gestation of pregnancy
CPT/HCPCS: 36415; 85014; 85018; 85025; 86592; 86703; 86850; 86900; 86901; A9270; G0432; J2590; J7120